=== PATIENT | female | born 1990 ===

== ENCOUNTER 2017-05-10 21:15 | Emergency (ER) | payer MEDICAID ==
[2017-05-10 21:35] VITALS: RESP 16
[2017-05-10] MEDS ORDERED: Iohexol 240 (50 ml) PO ONE (22:25)
[2017-05-10] MEDS ORDERED: Sodium Chloride 0.9% 1,000 ML IV STA (22:25)
--- NOTE | 2017-05-10 22:32 | ED PDOC ---
HPI: Abdomen Time Seen by Provider: 05/10/17 21:49 Chief Complaint (Nursing): GI Problem Chief Complaint (Provider): abdominal pain History Per: Patient History/Exam Limitations: no limitations Onset/Duration Of Symptoms: Days (1) Current Symptoms Are (Timing): Still Present Additional Complaint(s): 26 y/o female presents with abdominal pain x 1 day. Associated multiple episodes of vomiting. Patient noted fever of 102F this am, none since. Denies headache, cough, congestion, shortness of breath, changes in bowel movements, urinary symptoms, vaginal bleeding/discharge. Patient states she is unable o keep anything down. Abnormal Vaginal Bleeding: No Past Medical History Reviewed: Historical Data, Nursing Documentation, Vital Signs Vital Signs: Last Vital Signs Temp 98.4 F 05/10/17 21:32 Pulse 84 05/10/17 21:32 Resp 16 05/10/17 21:32 BP 125/77 05/10/17 21:32 Pulse Ox 100 05/10/17 22:32 - Medical History PMH: Asthma - Surgical History Surgical History: No Surg Hx - Family History Family History: States: Unknown Family Hx - Immunization History Hx Tetanus Toxoid Vaccination: No (last tetanus over 5 years ago) - Home Medications Home Medications: Ambulatory Orders Medication Instructions Recorded Famotidine [Pepcid] 20 mg PO BID #10 tab 05/11/17 Ondansetron ODT [Zofran ODT] 4 mg PO Q8 PRN #10 odt 05/11/17 - Allergies Allergies/Adverse Reactions: Allergies Allergy/AdvReac Type Severity Reaction Status Date / Time shellfish derived Allergy SWELLING Verified 03/08/16 23:10 Review of Systems ROS Statement: Except As Marked, All Systems Reviewed And Found Negative Gastrointestinal: Positive for: Nausea, Vomiting, Abdominal Pain Physical Exam - Reviewed Nursing Documentation Reviewed: Yes Vital Signs Reviewed: Yes - Physical Exam Appears: Positive for: Well, Non-toxic, No Acute Distress Head Exam: Positive for: ATRAUMATIC, NORMAL INSPECTION, NORMOCEPHALIC Skin: Positive for: Normal Color Eye Exam: Positive for: Normal appearance ENT: Positive for: Normal ENT Inspection Cardiovascular/Chest: Positive for: Regular Rate, Rhythm Respiratory: Positive for: Normal Breath Sounds Gastrointestinal/Abdominal: Positive for: Bowel Sounds, Soft, Tenderness (rlq, epigastric) Back: Positive for: Normal Inspection Extremity: Positive for: Normal ROM Neurologic/Psych: Positive for: Alert, Oriented - Laboratory Results Result Diagrams: 05/10/17 22:59 05/10/17 22:59 - ECG O2 Sat by Pulse Oximetry: 100 - Progress ED Course And Treament: labs, urine, CT abd/pelvis, IV fluids, zofran, pepcid EXAM: CT Abdomen and Pelvis With Intravenous Contrast EXAM DATE/TIME: Exam ordered 05/10/2017 10:25 PM CLINICAL HISTORY: 26 years old, female; Signs and symptoms; Nausea and vomiting; Additional info: Abd pain, vomiting TECHNIQUE: Axial computed tomography images of the abdomen and pelvis with intravenous contrast. All CT scans at this facility use one or more dose reduction techniques, viz.: automated exposure control; ma/kV adjustment per patient size (including targeted exams where dose is matched to indication; i.e. head); or iterative reconstruction technique. CONTRAST: 95 mL of omnipaque 300 administered intravenously. COMPARISON: No relevant prior studies available. FINDINGS: Lower thorax: Atelectasis in the bases. ABDOMEN: Liver: Unremarkable. No mass. Gallbladder and bile ducts: Unremarkable. No calcified stones. No ductal dilation. Pancreas: Unremarkable. No mass. No ductal dilation. Spleen: Unremarkable. No splenomegaly. Adrenals: Unremarkable. No mass. Kidneys and ureters: Unremarkable. No solid mass. No hydronephrosis. Stomach and bowel: Unremarkable. No obstruction. No mucosal thickening. Appendix: No findings to suggest acute appendicitis. PELVIS: Bladder: Unremarkable. No mass. Reproductive: Intrauterine device in place Unremarkable as visualized. ABDOMEN and PELVIS: Intraperitoneal space: Trace free fluid in the pelvis presumably physiologic. No free air. Bones/joints: No acute fracture. No dislocation. Soft tissues: Small fat-containing umbilical hernia. Vasculature: Unremarkable. No abdominal aortic aneurysm. Lymph nodes: Unremarkable. No enlarged lymph nodes. IMPRESSION: No acute findings. Presumed physiologic trace free fluid. Intrauterine device in place. On re-eval, patient feeling better; tolerating PO. Patient educated on findings, discharged with rx pepcid, zofran. Advised fluids, bland diet. Follow up PMD 2-3 days. Return precautions given. Disposition - Clinical Impression Clinical Impression: Abdominal pain - Patient ED Disposition Is Patient to be Admitted: No Counseled Patient/Family Regarding: Studies Performed, Diagnosis, Need For Followup, Rx Given - Disposition Disposition: Routine/Home Disposition Time: 02:50 Condition: IMPROVED Prescriptions: Famotidine [Pepcid] 20 mg PO BID #10 tab Ondansetron ODT [Zofran ODT] 4 mg PO Q8 PRN #10 odt PRN Reason: Nausea/Vomiting Instructions: Acute Abdomen (Belly Pain), Adult (DC) Forms: [facility] (Niuean)
[2017-05-10 23:04] LABS: BASO % 0.7 % (0.0-2.0); EOS # 0.1 K/uL (0.0-0.7); EOS % 1.2 % (0.0-4.0); HEMOGLOBIN 13.2 g/dL (12.0-16.0); LYMPH # 0.9 K/uL (1.0-4.3); LYMPH % 18.2 % (20.0-40.0); MEAN CORPUSCULAR HEMOGLOBIN 28.1 pg (27.0-31.0); MEAN CORPUSCULAR HGB CONC 31.9 g/dL (33.0-37.0); MEAN PLATELET VOLUME 11.1 fl (7.2-11.7); MONO # 0.4 K/uL (0.0-0.8); MONO % 9.1 % (0.0-10.0); NEUT # 3.4 K/uL (1.8-7.0); NEUT % 70.8 % (50.0-75.0); NRBC % 0.1 % (0.0-0.0); RBC 4.7 Mil/uL (3.80-5.20); WHITE BLOOD COUNT 4.8 K/uL (4.8-10.8)
[2017-05-10 23:13] LABS: ALB/GLOB RATIO 1.2 (1.0-2.1); ALT/SGPT 25 U/L (9-52); AST/SGOT 23 U/L (14-36); BLOOD UREA NITROGEN 9 mg/dl (7-17); CALCIUM 8.5 mg/dL (8.4-10.2); GFR AFRICAN-AMERICAN > 60; GFR NON-AFRICAN AMERICAN > 60; LIPASE 88 U/L (23-300)
[2017-05-10 23:19] LABS: SQUAMOUS EPITHIAL 5 /hpf (0-5); URINE BILIRUBIN NEGATIVE (NEGATIVE); URINE BLOOD NEGATIVE (NEGATIVE); URINE CLARITY SLIGHTY-CLOUDY (Clear); URINE COLOR YELLOW (YELLOW); URINE GLUCOSE (UA) NEG (Normal); URINE LEUKOCYTE ESTERASE TRACE Leu/uL (Negative); URINE PROTEIN NEGATIVE (NEGATIVE)
[2017-05-11] MEDS ORDERED: Iohexol 300 100 ML IJ ONE (01:06)
[2017-05-11 03:05] VITALS: BP 114/66; PULSE 72; TEMP 97.8; O2SAT 99
--- NOTE | 2017-05-11 10:14 | CT ---
PROCEDURE: CT Abdomen and Pelvis with contrast HISTORY: abd pain, vomiting COMPARISON: None. TECHNIQUE: Following oral and intravenous contrast administration, a CT examination of the abdomen and pelvis performed from the domes of the diaphragms to the symphysis pubis with reformatted datasets provided not only axial but also sagittal and coronal series. Contrast dose: Omnipaque 300, 95 cc Radiation dose: Total exam DLP = 433.97 mGy-cm. This CT exam was performed using one or more of the following dose reduction techniques: Automated exposure control, adjustment of the mA and/or kV according to patient size, and/or use of iterative reconstruction technique. FINDINGS: LOWER THORAX: Unremarkable. LIVER: Unremarkable. No gross lesion or ductal dilatation. GALLBLADDER AND BILE DUCTS: Unremarkable. PANCREAS: Unremarkable. No gross lesion or ductal dilatation. SPLEEN: Unremarkable. ADRENALS: Unremarkable. No mass. KIDNEYS AND URETERS: Unremarkable. No hydronephrosis. No solid mass. VASCULATURE: Unremarkable. No aortic aneurysm. BOWEL: The stomach is distended with retained food and a bit of oral contrast. [id number] fecal loading is seen in various large-bowel segments. No obstruction. No gross mural thickening. Opacified small bowel appears unremarkable diffusely. APPENDIX: Normal appendix. PERITONEUM: Overall, the perineum appears unremarkable the exception of nonspecific, trace fluid at the inferior right adnexal compartment. LYMPH NODES: Unremarkable. No enlarged lymph nodes. BLADDER: Unremarkable. REPRODUCTIVE: Intrauterine device in situ within the endometrial cavity of the uterus. BONES: No acute fracture. OTHER FINDINGS: None. IMPRESSION: Nonspecific, trace fluid is seen the inferior margins of the right adnexal compartment with the uterus remarkable for an intrauterine device in situ. Imaging through the abdomen is unremarkable and nonacute appearing. Clinically correlate further. Concordant preliminary report from [facility], 05/11/2017.
== END 2017-05-11 03:10 | disposition home or self-care (01) ==
LOC: H.EROB2 21:15 → H.ER 21:15
DX: R10.9 Unspecified abdominal pain (principal); R11.10 Vomiting, unspecified; J45.909 Unspecified asthma, uncomplicated; Z97.5 Presence of (intrauterine) contraceptive device
CPT/HCPCS: 74177; 80053; 81003; 81025; 83690; 85025; 96360; 99284; J7040; Q9966; Q9967

== ENCOUNTER 2017-07-29 13:56 | Emergency (ER) | payer MEDICAID, OTHER ==
[2017-07-29 14:04] VITALS: BP 115/76; PULSE 65; RESP 16; TEMP 97.4; O2SAT 100
--- NOTE | 2017-07-29 14:47 | ED PDOC ---
HPI: Back Time Seen by Provider: 07/29/17 14:02 Chief Complaint (Nursing): Back Pain Chief Complaint (Provider): Back Pain History Per: Patient History/Exam Limitations: no limitations Onset/Duration Of Symptoms: Days (x1) Current Symptoms Are (Timing): Still Present Quality Of Discomfort: "Pain" Previous Symptoms: None Associated Symptoms: None Additional Complaint(s): Ananya Swanson is a 27 year old female, with no significant past medical history, who presents to the emergency department complaining of back pain onset for x1 day. Patient reports pain began after she lifted a child while at work. She did not take any pain medications. She denies any numbness or tingling, weakness, incontinence or dysuria. No further medical complaints. PMD: None provided. Past Medical History Reviewed: Historical Data, Nursing Documentation, Vital Signs Vital Signs: Last Vital Signs Temp 97.4 F L 07/29/17 14:02 Pulse 65 07/29/17 14:02 Resp 16 07/29/17 14:02 BP 115/76 07/29/17 14:02 Pulse Ox 100 07/29/17 14:02 - Medical History PMH: Asthma - Surgical History Surgical History: No Surg Hx - Family History Family History: States: Unknown Family Hx - Immunization History Hx Tetanus Toxoid Vaccination: No (last tetanus over 5 years ago) - Home Medications Home Medications: Ambulatory Orders Medication Instructions Recorded Famotidine [Pepcid] 20 mg PO BID #10 tab 05/11/17 Ondansetron ODT [Zofran ODT] 4 mg PO Q8 PRN #10 odt 05/11/17 Cyclobenzaprine [Cyclobenzaprine 10 mg PO Q8H PRN #12 tab 07/29/17 HCl] Ibuprofen [Motrin Tab] 800 mg PO Q6H PRN #20 tab 07/29/17 - Allergies Allergies/Adverse Reactions: Allergies Allergy/AdvReac Type Severity Reaction Status Date / Time shellfish derived Allergy SWELLING Verified 03/08/16 23:10 Review of Systems ROS Statement: Except As Marked, All Systems Reviewed And Found Negative Genitourinary Female: Negative for: Dysuria, Incontinence Musculoskeletal: Positive for: Back Pain Neurological: Negative for: Weakness, Numbness (tingling) Physical Exam - Reviewed Nursing Documentation Reviewed: Yes Vital Signs Reviewed: Yes - Physical Exam Appears: Positive for: Non-toxic Head Exam: Positive for: ATRAUMATIC, NORMOCEPHALIC Skin: Positive for: Normal Color, Warm, Dry Eye Exam: Positive for: Normal appearance Neck: Positive for: Painless ROM Respiratory: Negative for: Respiratory Distress Back: Positive for: Other (+ Straight leg raise test. Midline tenderness). Negative for: L CVA Tenderness, R CVA Tenderness Extremity: Positive for: Normal ROM (upper and lower extremities). Negative for : Deformity, Swelling Neurologic/Psych: Positive for: Alert, Oriented. Negative for: Motor/Sensory Deficits - ECG O2 Sat by Pulse Oximetry: 100 (RA) Pulse Ox Interpretation: Normal Medical Decision Making Medical Decision Making: Time: 14:02 Initial Impression: Back pain Initial Plan: --Urine --Motrin tab 600 mg PO --LS Spine AP/LAT [RAD] XR without acute abnormalities. Scribe Attestation: Documented by Yossi Brooke, acting as a scribe for Christa Adam PA-C Provider Scribe Attestation: All medical record entries made by the Scribe were at my direction and personally dictated by me. I have reviewed the chart and agree that the record accurately reflects my personal performance of the history, physical exam, medical decision making, and the department course for this patient. I have also personally directed, reviewed, and agree with the discharge instructions and disposition. Disposition - Clinical Impression Clinical Impression: Low back pain - Patient ED Disposition Is Patient to be Admitted: No Counseled Patient/Family Regarding: Diagnosis, Need For Followup, Rx Given - Disposition Disposition: Routine/Home Disposition Time: 15:32 Condition: STABLE Prescriptions: Cyclobenzaprine [Cyclobenzaprine HCl] 10 mg PO Q8H PRN #12 tab PRN Reason: Muscle Spasm Ibuprofen [Motrin Tab] 800 mg PO Q6H PRN #20 tab PRN Reason: Pain Instructions: Low Back Pain in Adults Forms: [facility] (Macanese), [facility] ED School/Work Excuse
--- NOTE | 2017-07-29 15:11 | RAD ---
PROCEDURE: Radiographs of the Lumbar Spine. HISTORY: back pain s/p lifting child COMPARISON: CT scan of the abdomen pelvis dated 05/11/2017. FINDINGS: BONES: Normal alignment. No listhesis. No fracture. DISC SPACES: Unremarkable. OTHER FINDINGS: None. IMPRESSION: Unremarkable radiographs of the lumbar spine.
== END 2017-07-29 15:40 | disposition home or self-care (01) ==
LOC: H.ER 13:56
DX: M54.5 Low back pain (principal)

== ENCOUNTER 2017-09-21 18:30 | Emergency (ER) | payer MEDICAID, OTHER ==
[2017-09-21 19:07] VITALS: BP 119/79; PULSE 79; RESP 18; TEMP 98.2; O2SAT 96
--- NOTE | 2017-09-21 19:13 | ED PDOC ---
HPI: Female Pain Time Seen by Provider: 09/21/17 19:11 Chief Complaint (Nursing): Female Genitourinary Chief Complaint (Provider): DYSURIA X 2 DAYS History Per: Patient (27 Y/O FEMALE COMPLAINT OF URINARY FREQUENCY X 2 DAYS. DENIES ANY HEMATURIA/DYSURIA/FEVERS/CHILLS. DENIES ANY LOWER ABD PAIN. ) Past Medical History Reviewed: Historical Data, Nursing Documentation, Vital Signs Vital Signs: Last Vital Signs Temp 98.2 F 09/21/17 19:05 Pulse 79 09/21/17 19:05 Resp 18 09/21/17 19:05 BP 119/79 09/21/17 19:05 Pulse Ox 96 09/21/17 19:05 - Medical History PMH: Asthma - Family History Family History: States: Unknown Family Hx - Immunization History Hx Tetanus Toxoid Vaccination: No (last tetanus over 5 years ago) - Home Medications Home Medications: Ambulatory Orders Medication Instructions Recorded Famotidine [Pepcid] 20 mg PO BID #10 tab 05/11/17 Ondansetron ODT [Zofran ODT] 4 mg PO Q8 PRN #10 odt 05/11/17 Cyclobenzaprine [Cyclobenzaprine 10 mg PO Q8H PRN #12 tab 07/29/17 HCl] Ibuprofen [Motrin Tab] 800 mg PO Q6H PRN #20 tab 07/29/17 Cephalexin [cephalexin] 500 mg PO TID #15 cap 09/21/17 Phenazopyridine HCl [Pyridium] 200 mg PO Q12 PRN #6 tablet 09/21/17 - Allergies Allergies/Adverse Reactions: Allergies Allergy/AdvReac Type Severity Reaction Status Date / Time shellfish derived Allergy SWELLING Verified 09/21/17 19:05 Review of Systems ROS Statement: Except As Marked, All Systems Reviewed And Found Negative Physical Exam - Reviewed Nursing Documentation Reviewed: Yes Vital Signs Reviewed: Yes - Physical Exam Appears: Positive for: Well, Non-toxic, No Acute Distress Head Exam: Positive for: ATRAUMATIC, NORMAL INSPECTION, NORMOCEPHALIC Skin: Positive for: Normal Color, Warm, DRY Eye Exam: Positive for: EOMI, Normal appearance, PERRL ENT: Positive for: Normal ENT Inspection Neck: Positive for: Normal, Painless ROM Cardiovascular/Chest: Positive for: Regular Rate, Rhythm Respiratory: Positive for: CNT, Normal Breath Sounds Gastrointestinal/Abdominal: Positive for: Normal Exam, Soft Back: Positive for: Normal Inspection Extremity: Positive for: Normal ROM Neurologic/Psych: Positive for: Alert, Oriented - Laboratory Results Urine POC: Negative Urine dip results: Positive for: Leukocyte Esterase. Negative for: Blood, Nitrate, Ketones, Glucose - ECG O2 Sat by Pulse Oximetry: 96 Disposition - Clinical Impression Clinical Impression: Urinary tract infection - Patient ED Disposition Is Patient to be Admitted: No - Disposition Disposition: Routine/Home Disposition Time: 19:31 Condition: FAIR Prescriptions: Cephalexin [cephalexin] 500 mg PO TID #15 cap Phenazopyridine HCl [Pyridium] 200 mg PO Q12 PRN #6 tablet PRN Reason: Urinary Discomt Instructions: Urinary Tract Infections in Adults
== END 2017-09-21 20:33 | disposition home or self-care (01) ==
LOC: H.ER 18:30
DX: N39.0 Urinary tract infection, site not specified (principal); J45.909 Unspecified asthma, uncomplicated